=== PATIENT | male | born 1970 | race Caucasian/White ===

== ENCOUNTER 2018-11-13 22:04 | Emergency (ER) | payer OTHER ==
[~2018-11-13] VITALS: Ht 175.3 cm; Wt 75.0 kg
[2018-11-13 22:09] VITALS: Ht 175.3 cm; Wt 75.0 kg
[2018-11-13] MEDS ORDERED: ATARAX 25 MG TA25 MG PO (22:10)
[2018-11-13] MEDS ORDERED: BUPRENORPHINE HC8 MG SL (22:10)
[2018-11-13] MEDS ORDERED: CELEXA40 MG PO (22:10)
[2018-11-13] MEDS ORDERED: VISTARIL25 MG (22:11)
[2018-11-13] MEDS ORDERED: BACLOFEN10 MG PO (22:11)
[2018-11-13 22:43] LABS: BASOPHILS 0.2 % (0-2); EOSINOPHILS 1.6 % (0-7); HEMATOCRIT 37.2 % (42.0-54.0); HEMOGLOBIN 12.4 g/dL (13.5-17.5); IMMATURE GRANULOCYTES 0.2 % (0-5); LYMPHOCYTES 12.8 % (15-50); MCH 31.1 pg (26.0-34.0); MCHC 33.3 g/dL (31.0-37.0); MCV 93.2 fL (80.0-100.0); MEAN PLATELET VOLUME 9.5 fL (7.4-10.4); MONOCYTES 7.6 % (2-11); NEUTROPHILS 77.6 % (40-80); PLATELET COUNT 225 10x3/uL (130-400); RBC 3.99 10x6/uL (4.20-6.10); RDW 14.3 % (11.5-14.5); WBC 12.7 10x3/uL (4.8-10.8)
[2018-11-13 23:03] LABS: ALKALINE PHOSPHATASE 71 U/L (46-116); ALT (SGPT) 89 U/L (10-68); BILIRUBIN - TOTAL 0.68 mg/dL (0.2-1.3); CALC OSMOLALITY 274 mosm/kg (275-300); CALCIUM 8.3 mg/dL (8.5-10.1); CARBON DIOXIDE 25.2 mmol/L (21.0-32.0); CHLORIDE - SERUM 102 mmol/L (98-107); CREATININE - SERUM 0.6 mg/dL (0.6-1.3); GLUCOSE 93 mg/dL (74-106); POTASSIUM - SERUM 3.4 mmol/L (3.5-5.1); PROTEIN - SERUM 7.3 g/dL (6.4-8.2); SODIUM 136 mmol/L (136-145); UREA NITROGEN 20 mg/dL (7-18); eGFR NON AFRICAN AMERICAN > 90 mL/min (90-120)
[2018-11-14] VITALS: BP 119/75
== END 2018-11-14 00:30 | disposition other institution (70) ==
LOC: D.ER 22:04
PROVIDERS: Emergency Medicine
DX: L02.01 Cutaneous abscess of face (principal)

== ENCOUNTER 2019-09-06 18:57 | Emergency (ER) | payer OTHER ==
[~2019-09-06] VITALS: Ht 175.3 cm; Wt 81.8 kg
[~2019-09-06 18:57] MED LIST: ATARAX 25 MG TA25 MG PO; BACLOFEN10 MG PO; BUPRENORPHINE HC8 MG SL; CELEXA40 MG PO; VISTARIL25 MG
[2019-09-06 19:03] VITALS: Ht 175.3 cm; Wt 81.8 kg
[2019-09-06 19:47] LABS: BASOPHILS 0.4 % (0-2); EOSINOPHILS 1.9 % (0-7); HEMATOCRIT 41.1 % (42.0-54.0); IMMATURE GRANULOCYTES 0.1 % (0-5); LYMPHOCYTES 24.6 % (15-50); MCH 32.2 pg (26.0-34.0); MCHC 34.1 g/dL (31.0-37.0); MCV 94.5 fL (80.0-100.0); MEAN PLATELET VOLUME 9.1 fL (7.4-10.4); MONOCYTES 15.4 % (2-11); NEUTROPHILS 57.6 % (40-80); PLATELET COUNT 269 10x3/uL (130-400); RBC 4.35 10x6/uL (4.20-6.10); RDW 13.8 % (11.5-14.5); WBC 6.8 10x3/uL (4.8-10.8)
[2019-09-06 19:56] LABS: CALC OSMOLALITY 276 mosm/kg (275-300); CALCIUM 8.6 mg/dL (8.5-10.1); CARBON DIOXIDE 25.9 mmol/L (21.0-32.0); CHLORIDE - SERUM 105 mmol/L (98-107); CREATININE - SERUM 0.9 mg/dL (0.6-1.3); GLUCOSE 93 mg/dL (74-106); POTASSIUM - SERUM 3.6 mmol/L (3.5-5.1); SODIUM 137 mmol/L (136-145); UREA NITROGEN 20 mg/dL (7-18); eGFR NON AFRICAN AMERICAN > 90 mL/min (90-120)
[2019-09-06 20:05] LABS: ALBUMIN 3.2 g/dL (3.4-5.0); ALKALINE PHOSPHATASE 63 U/L (30-120); ALT (SGPT) 30 U/L (10-68); BILIRUBIN - TOTAL 0.45 mg/dL (0.2-1.3); PROTEIN - SERUM 7.4 g/dL (6.4-8.2)
[2019-09-06] MEDS ORDERED: VOLTAREN75 MG PO (20:08)
[2019-09-06] MEDS ORDERED: METHOCARBAMOL750 MG NG (20:08)
[2019-09-06 20:38] VITALS: BP 142/86
== END 2019-09-06 20:38 | disposition home or self-care (01) ==
LOC: D.ER 18:57
PROVIDERS: Family Medicine
DX: S20.211A Contusion of right front wall of thorax, initial encounter (principal); S59.902A Unspecified injury of left elbow, initial encounter; V49.9XXA Car occupant (driver) (passenger) injured in unspecified traffic accident, initial encounter